=== PATIENT | male | born 1940 | race Caucasian/White ===

== ENCOUNTER 2017-04-16 08:00 | Inpatient (IN) | payer MEDICARE, BC ==
[~2017-04-16] VITALS: Ht 170.2 cm; Wt 71.2 kg
--- NOTE | ~2017-04-16 | HP ---
PATIENT'S NAME: PAULETTE [facility] AGE: 76 Y [address] ROOM: [address] [place], [place] [address] [facility] ADMIT DATE: 04/16/2017 History & Physical DISCHARGE DATE: FAMILY PHYSICIAN: Jarocho Patrick PA-C ATTENDING PHYSICIAN: Immanuel Villagomez DATE OF SERVICE: DIAGNOSIS: Acute ST-elevation myocardial infarction. HISTORY OF PRESENT ILLNESS: The patient is a 76-year-old man, who has known coronary artery disease. He underwent a quadruple coronary bypass in the year 1999. He has been followed by [facility], but apparently recently switched to the [facility]. He lives in [place]. He had coronary graft angiography in 2012 that did not require any intervention. He had another catheterization in 2014, and he had at that point balloon angioplasty of a calcific mid right coronary artery. 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 According to the transfer documents, his medications include metoprolol 25 mg half a tablet at bedtime, omeprazole 20 daily, amlodipine 2.5 mg half a tablet daily, Pravastatin 80 mg daily, Ranexa 1000 mg twice a day, aspirin 81 mg daily. He presented to the local emergency room reporting that he had onset of chest pain the previous night and continued in the morning. Evaluation there showed ST elevation in the inferior leads with reciprocal changes in the lateral leads as well as V1 and V2. The emergency room physician contacted me. He sent me the electrocardiogram, and we treated the patient with intravenous heparin bolus and usual 4 baby aspirins and Lipitor 80. He was also given a dose of metoprolol. Subsequently, his chest pain improved and actually the STs returned to baseline. Initially, plan was to fly the patient to [place], but the weather did not permit, so he was transported by ground. PAST MEDICAL HISTORY: Overall, he is good. The patient does not have any other serious medical problems. REVIEW OF SYSTEMS: Negative. FAMILY HISTORY: His father, brother, and sister all from cardiovascular disease. SOCIAL HISTORY: The patient is . 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 ROOM: [address] [place], [place] [address] [facility] ADMIT DATE: 04/16/2017 History & Physical DISCHARGE DATE: FAMILY PHYSICIAN: Jarocho Patrick PA-C ATTENDING PHYSICIAN: Immanuel Villagomez. Never smoked. Does not use alcohol. No illegal drug history. PAST SURGICAL HISTORY: No other surgical history except CABG. PHYSICAL EXAMINATION: VITAL SIGNS: He is a lean elderly man, who is alert and oriented. Reports 2/10 chest pain. He is 5 feet 7 inches, weight 71.2 kg. Blood pressure is 141/66, heart rate 76. He is afebrile. GENERAL: He is alert and oriented. He is on a gurney. HEENT: Head: Normocephalic, atraumatic. No xanthelasmas. NECK: Supple. No carotid bruits. No jugular venous distention. HEART: Regular first and second heart sounds. LUNGS: Clear. ABDOMEN: Flat, soft and nontender. LOWER EXTREMITIES: No peripheral edema. LABORATORY AND DIAGNOSTIC DATA: His electrocardiogram as described. His troponin in [place] was 0.018 with upper normal 0.056. CK-MB was negative. Creatinine 1.3, estimated GFR 55, potassium 3.3, glucose 169, hemoglobin 13.5. PLAN: We will proceed with emergent catheterization and percutaneous intervention anatomy. Risks, benefits, and alternatives were explained, and the patient is willing to proceed. Thank you for allowing me to participate in the care of your patient. IMMANUEL VILLAGOMEZ MD PE/baljinder /[id number] D: T: HISTORY & PHYSICAL
--- NOTE | ~2017-04-16 | DS ---
PATIENT'S NAME: ELISA CALDWELL [facility] AGE: 76 Y [address] ROOM: [address] [place], [place] [address] LOCATION: [facility] ADMIT DATE: 04/16/2017 Discharge Summary DISCHARGE DATE: 04/21/2017 FAMILY PHYSICIAN: Jarocho Patrick PA-C ATTENDING PHYSICIAN: Immanuel Cuellar DIAGNOSES: 1. ST elevation myocardial infarction with culprit in the saphenous vein graft to obtuse marginal and [place] right coronary artery. 2. Drug-eluting stents to both vessels. 3. Delirium, which cleared. 4. Orthostatic hypotension, transient. 5. Ischemic cardiomyopathy with ejection fraction of 50% by echo. HOSPITAL COURSE: The patient was transferred from outside hospital where he had presented with chest pain and inferior wall ST elevations. Actually, his electrocardiogram had normalized by the time he reached [facility]. He was taken directly to the catheterization laboratory. He had previous history of quadruple bypass in the year 1999. In the original catheterization, the patient was found to have subtotal stenosis of the saphenous vein graft to the obtuse marginal 1. He had patent free NEAL graft to obtuse marginal 2. He had a severely diseased calcific right coronary artery, which historically could not be stented in the year 2014. On day #1, he received 2 drug-eluting stents to the saphenous vein graft. Then, the next day, he was brought back to the catheterization laboratory and we were able to deploy 2 drug-eluting stents to the main RCA vessel and a third in the large posterolateral branch. The patient did well from a cardiac standpoint, but he did become confused and for a couple days had some visual hallucinations, which by the time of discharge have cleared. We did obtain a CT of the head that showed no hemorrhage or findings of acute ischemic stroke. He was also evaluated by Dr. Quinonez, who did not think that the patient needed inpatient rehab. Because of transient orthostatic hypotension, his RAGHAVENDRA inhibitor was discontinued and his beta-ishan was decreased. MEDICATIONS ON DISCHARGE: 1. Aspirin 81 mg once a day. 2. Ticagrelor 90 mg twice a day. 3. Carvedilol 6.25 mg twice a day. 4. Atorvastatin 80 mg daily. 5. Eplerenone 25 mg daily. 6. Omeprazole 10 mg daily. FOLLOWUP: Follow up with rudolphelf in 2 weeks, with Dr. Quinonez in 1 week, and his family physician in 1 week. PATIENT'S NAME: ELISA CALDWELL [facility] AGE: 76 Y [address] ROOM: [address] [place], [place] [address] [facility] AD[facility] DATE: 04/16/2017 Discharge Summary DISCHARGE DATE: 04/21/2017 FAMILY PHYSICIAN: Jarocho Patrick PA-C ATTENDING PHYSICIAN: Immanuel Cuellar Thank you for allowing me to participate in the care of your patient. IMMANUEL CUELLAR MD PE/baljinedr /[id number] d: 04/21/17 2144 t: 04/24/17 1119, DISCHARGE SUMMARY
--- NOTE | ~2017-04-16 | CATH ---
Cardiac Diagnostic + PCI Report Demographics Patient Name PAULETTE PÉREZ Gender Male Date of 1940 Age 76 year(s) Patient Number [id number] Date of Study 04/16/2017 Visit Number [id number] Room Number G[address] [place] [id number] Ht 175 cm Wt 72.9 kg Number Referring Efstrati Primary Physician Physician Arielle Mcbride MD Performing Efstratiou Secondary Physician Physician Arielle Mcbride MD Diagnostic Efstratiou Assisting Physician Physician Arielle Mcbride MD Interventional Efstratiou Physician Regulatory Affairs Director Physician Arielle Mcbride MD Findings and Conclusions Diagnostic Findings and Conclusion Severe stenosis in SVG to OM2 (2 lesions). Severe stenosis in resighini RCA and PLB. Patent PRESLEY to LAD and free NEAL to OM1. Diagnostic Recommendations PCI of SVG to OM Interventional Findings and Conclusion Successful drug eluting stent x 2 to SVG to OM2. Interventional Recommendations Dual anti-platelet therapy indefinitely. Staged PCI to RCA. Procedure Description The patient was brought to the diagnostic cardiac catheterization-EP laboratory in the fasting, non-sedated state. Informed consent was obtained in the written and verbal form after the risks and benefits were explained. The patient had no further questions and agreed to proceed. The planned puncture-incision site(s) were shaved and prepped with ChloraPrep and draped in the usual sterile manner. Conscious sedation, supplemental oxygen, and pain control medications were delivered by a registered nurse under physician guidance. Surface ECG rhythm, blood pressure measurement, and pulse oximetry were monitored throughout the procedure. Arterial access. The access site was infiltrated with lidocaine. The vessel was entered with the Seldinger technique. A sheath was advanced into the vessel and used for catheter placement. Selective left coronary angiography. A catheter was advanced into the left coronary vessel ostium under Fluoroscopic guidance. Contrast was injected by hand. Images were obtained in multiple projections. Selective right coronary angiography. A catheter was advanced into the right coronary vessel ostium under fluoroscopic guidance. Contrast was injected by hand. Images were obtained in multiple projections. Selective PRESLEY graft angiography. A catheter was advanced into the left internal mammary graft ostium under fluoroscopic guidance. Contrast was injected by hand. Images were obtained in multiple projections. Selective SVG angiography. A catheter was advanced into the graft proximal anastomosis under fluoroscopic guidance. Contrast was injected by hand. Images were obtained in multiple projections. Selective Free NEAL graft angiography. A catheter was advanced into the free right internal mammary graft proximal anastomosis under fluoroscopic guidance. Contrast was injected by hand. Images were obtained in multiple projections. Left heart catheterization. A catheter was advanced across the aortic valve to the left ventricle under fluoroscopic guidance. Resting hemodynamics were obtained. Stent Placement: A guiding catheter was used to intubate the vessel. A 0.14 wire was used to cross the lesion. A Drug Eluting Stent was placed. Post placement angiograms were performed. Arterial artery hemostasis. Hemostasis was achieved. The patient was transferred to a regular nursing floor via cart accompanied by a nurse. The patient left the laboratory in stable condition. Diagnostic Cath Status: Emergency Interventional Cath Status: Emergency Procedure Procedure Type Diagnostic procedure:Angiography:, Coronary Angios w/Grafts, [facility] PCI procedure:Drug Eluting Coronary Stent:, Graft Indications: Acute [place]. The procedure was explained in detail to the patient. Risks, complications and alternative treatments were reviewed. Written consent was obtained. Medications Reviewed with Patient prior to Procedure. Angiographic Findings Dominance: Right Cardiac Arteries and Lesion Findings LMCA: Lesion on LMCA: Ostial.75% stenosis . LAD: Lesion on Prox LAD: 40% stenosis . Lesion on Mid LAD: 90% stenosis . Lesion on 1st Dia% stenosis . LCx: Lesion on Prox CX: 100% stenosis . Lesion on 1st Ob Elen% stenosis . RCA: Lesion on Mid RCA: 80% stenosis . Lesion on Dist RCA: 70% stenosis . Lesion on 1st RPL: 70% stenosis . Graft Lesions Lesion on Aorta Left to 2nd Ob Elen: Proximal body.90% stenosis 20 mm length reduced to 0%. Pre procedure JASMEET III flow was noted. Post Procedure JASMEET III flow was present. The lesion was diagnosed as a high risk lesion.The lesion showed evidence of thrombus presence.Culprit lesion. Treatment results:Interventional treatment was successful. Devices used - Whisper Wire .014 x 190. Number of passes: 1. - Filterwire 190 cm. Number of passes: 1. - Promus Premier 3.0 x 20 Stent. 1 inflation(s) to a max pressure of: 20 opal. - Pronto V3 Aspiration Catheter. Number of passes: 1. Lesion on Aorta Left to 2nd Ob Elen: Distal body.90% stenosis 24 mm length reduced to 0%. Pre procedure JASMEET III flow was noted. Post Procedure JASMEET III flow was present. The lesion was diagnosed as a high risk lesion.The lesion showed evidence of thrombus presence.Culprit lesion. Treatment results:Interventional treatment was successful. Devices used - Promus Premier 3.0 x 24 Stent. 1 inflation(s) to a max pressure of: 14 opal. Cardiac Grafts - There is a Free NEAL graft that originates at the Aorta Left and attaches to the 1st Ob Elen (Patent). - There is a Vein graft that originates at the Aorta Left and attaches to the 2nd Ob Elen. - There is a PRESLEY graft that originates at the PRESLEY and attaches to the Mid LAD. Coronary Tree Procedure Data Procedure Date Date: 04/16/2017Start: 09:51 AMEnd: 11:09 AM Entry Locations - Retrograde Percutaneous access was performed through the Right Femoral artery (Primary location). A 6 Fr sheath was inserted. Hemostasis was successfully obtained using Angio-Seal STS PLUS ([place]). Closure Comments: Deployed by Dr. Villagomez. Procedure Medications Order and Administration + + + + + !Time !Medication !Dosage !Route ! + + + + + !04/16/2017 09:52 !Fentanyl !25 mcg !I.V. ! !AM ! ! ! ! + + + + + !04/16/2017 09:58 !Heparin (ACC_3) !6000 units !I.V. ! !AM ! ! ! ! + + + + + !04/16/2017 10:16 !Heparin (ACC_3) !2000 units !I.V. ! !AM ! ! ! ! + + + + + !04/16/2017 10:23 !Fentanyl !25 mcg !I.V. ! !AM ! ! ! ! + + + + + !04/16/2017 10:30 !Heparin (ACC_3) !2000 units !I.V. ! !AM ! ! ! ! + + + + + !04/16/2017 10:31 !Fentanyl !25 mcg !I.V. ! !AM ! ! ! ! + + + + + !04/16/2017 10:25 !Aggrastat (Tirofiban) !1875 mcg !I.C. ! !AM ! ! ! ! + + + + + !04/16/2017 10:33 !Fentanyl !25 mcg !I.V. ! !AM ! ! ! ! + + + + + !04/16/2017 10:38 !Aggrastat (Tirofiban) !0.15 mcg/kg/min!I.V. drip ! !AM ! ! ! ! + + + + + !04/16/2017 10:40 !Nipride !200 mcg !I.C. ! !AM ! ! ! ! + + + + + !04/16/2017 10:41 !Nipride !200 mcg !I.C. ! !AM ! ! ! ! + + + + + !04/16/2017 10:42 !0.9% NaCl !200 ml !I.V. bolus ! !AM ! ! ! ! + + + + + !04/16/2017 10:46 !Fentanyl !50 mcg !I.V. ! !AM ! ! ! ! + + + + + !04/16/2017 10:56 !Brilinta (Ticagrelor) !180 mg !P.O. ! !AM !(ACC_20) ! ! ! + + + + + Devices Used - A6 Fr. BS JL 4 Diag. Catheterwas used for:Left coronary angiography. - A6 Fr. BS JR 4 Diag. Catheterwas used for:Right coronary angiography. - A6 Fr. BS IMT Diag. Catheterwas used for:PRESLEY. - A6 Fr. LCB Guide Catheterwas used for:SVG Intervention. Contrast Material - Isovue [id number] ml Fluoroscopy Time: Diagnostic: 18:54 minutes. Total: 18:54 minutes. Fluoroscopy Dose: Diagnostic: 1823 mGy. Total: 1823 mGy. Estimated Blood Loss: 50 ml. Additional [facility] PCI Information PCI Indication:Immediate PCI for STEMI. Medical History Allergies - No known allergies. Risk Factors The patient risk factors include:prior PCI on 08/25/2015; prior CABG on 09/03/2000;hypercholesterolemia, hypertension, family history of premature CAD, last creatinine: 1.3 mg/dl, creatinine clearance: 51.4 ml/min and dyslipidemia. Admission Data Admission Date: 04/16/2017 Admission Time: 09:32 AM Admit Source: Transfer [facility] facility Insurance Payors: Medicare. Admission Medications + +------+------+ + + + + !Medication !Dosage!Times !Last !Last !Administered !Comments ! ! ! !Per !Delivery !Delivery ! ! ! ! ! !Day !Date !Time ! ! ! + +------+------+ + + + + !Beta [place]! ! ! ! !Yes ! ! !(any) ! ! ! ! ! ! ! + +------+------+ + + + + !RAGHAVENDRA ! ! ! ! !Yes ! ! !Inhibitor ! ! ! ! ! ! ! !(any) ! ! ! ! ! ! ! + +------+------+ + + + + !Aspirin ! ! ! ! !Yes ! ! !(any) ! ! ! ! ! ! ! + +------+------+ + + + + Clinical Evaluation Leading to Procedure - The patient's CAD presentation was assessed as: STEMI. - The patient's anginal syndrome during the past two weeks was assessed as: Class IV according to the [place] Cardiovascular Society Classification System (CCS). Anti-anginal medications were prescribed during the past two weeks. The medications are: Beta Blockers and Ranolazine. Snapshots Hemodynamics Condition: Rest O2 Consumption: Estimated: 223.40Heart Rate: 80 bpm Pressures (mmHg) +-----+ + !Site !Pressure ! +-----+ + !AO !124/57 (85) ! +-----+ + !LV !122/0 ,15 ! +-----+ + !LV !122/0 ,15 ! +-----+ + !AO !130/55 (85) ! +-----+ + !LV !119/1 ,14 ! +-----+ + !AO !122/59 (85) ! +-----+ + Valve Gradients and Areas + +---------+---------+---------+ +---------+ + !Valve !Peak !Mean !Area !Index !Flow !Source ! + +---------+---------+---------+ +---------+ + !Aortic !0 !0 ! ! ! ! ! + +---------+---------+---------+ +---------+ + !Aortic !0 !0 ! ! ! ! ! + +---------+---------+---------+ +---------+ + Shunts Oxygen Values O2 Capacity 183.6 O2 Consumption 223.4 Signatures dtt: Efrain Villagomez dtd: 04/16/17 0951 Physician Self Edit
--- NOTE | ~2017-04-16 | CATH ---
Cardiac Diagnostic + PCI Report Demographics Patient Name PAULETTE PÉREZ Gender Male Date of 1940 Age 76 year(s) Patient Number [id number] Date of Study 04/17/2017 Visit Number [id number] Room Number G6324 [place] [id number] Ht 175 cm Wt 72.9 kg Number Referring Darnell Avendaño I Primary Physician Physician DENNIS Performing Efstratiou Secondary Physician Physician Arielle Mcbride MD Diagnostic Efstratiou Assisting Physician Physician Arielle Mcbride MD Interventional Efstratiou Physician Devulcanizer Tender Physician Arielle Mcbride MD Findings and Conclusions Diagnostic Findings and Conclusion 95% severe calcific stenosis of mid RCA. 75% stenosis of large PLB. Patent recent stents to SVG to OM2 Patent SVG to OM3 which was not imaged yesterday Diagnostic Recommendations PCI to both lesions. Interventional Findings and Conclusion Successful deployment of 3 SWETA. Interventional Recommendations Continue ASA and Brilinta. Procedure Description The patient was brought to the diagnostic cardiac catheterization-EP laboratory in the fasting, non-sedated state. Informed consent was obtained in the written and verbal form after the risks and benefits were explained. The patient had no further questions and agreed to proceed. The planned puncture-incision site(s) were shaved and prepped with ChloraPrep and draped in the usual sterile manner. Conscious sedation, supplemental oxygen, and pain control medications were delivered by a registered nurse under physician guidance. Surface ECG rhythm, blood pressure measurement, and pulse oximetry were monitored throughout the procedure. Arterial access. The access site was infiltrated with lidocaine. The vessel was entered with the Seldinger technique. A sheath was advanced into the vessel and used for catheter placement. Selective left coronary angiography. A catheter was advanced into the left coronary vessel ostium under Fluoroscopic guidance. Contrast was injected by hand. Images were obtained in multiple projections. Selective right coronary angiography. A catheter was advanced into the right coronary vessel ostium under fluoroscopic guidance. Contrast was injected by hand. Images were obtained in multiple projections. Selective SVG angiography. A catheter was advanced into the graft proximal anastomosis under fluoroscopic guidance. Contrast was injected by hand. Images were obtained in multiple projections. Selective SVG angiography. A catheter was advanced into the graft proximal anastomosis under fluoroscopic guidance. Contrast was injected by hand. Images were obtained in multiple projections. Angioplasty and Stent Placement: A guiding catheter was used to intubate the vessel. A 0.14 wire was then used to cross the lesion. A balloon catheter was placed across the lesion and inflated. The balloon catheter was then removed. A Drug Eluting Stent was placed and inflated. Post placement angiograms were performed. Arterial artery hemostasis was achieved. The patient was transferred to a regular nursing floor via cart accompanied by a nurse. The patient left the laboratory in stable condition. Diagnostic Cath Status: Urgent Interventional Cath Status: Urgent Procedure Procedure Type Diagnostic procedure:Angiography:, Coronary Angios w/Grafts PCI procedure:Drug Eluting Coronary Stent:, RCA, PL Indications: Recent KS. The procedure was explained in detail to the patient. Risks, complications and alternative treatments were reviewed. Written consent was obtained. Medications Reviewed with Patient prior to Procedure. Angiographic Findings Dominance: Right Cardiac Arteries and Lesion Findings LCx: Lesion on 3rd Ob Elen% stenosis . RCA: Lesion on Mid RCA: Mid subsection.95% stenosis 32 mm length reduced to 0%. Pre procedure JASMEET II flow was noted. Post Procedure JASMEET III flow was present. The guidewire cross was successful.The lesion was diagnosed as a moderate risk lesion.Culprit lesion. Treatment results:Interventional treatment was successful. Devices used - Whisper Extra Support Wire .014 x 190. Number of passes: 1. - Emerge Push Balloon 1.5 x 8. 5 inflation(s) to a max pressure of: 22 opal. - Emerge Balloon 2.0 x 12. 1 inflation(s) to a max pressure of: 20 opal. - Emerge Balloon 2.5 x 12. 3 inflation(s) to a max pressure of: 16 opal. - NC Emerge Balloon 3.0 x 15. 4 inflation(s) to a max pressure of: 20 opal. - Promus Premier 3.0 x 32 Stent. 2 inflation(s) to a max pressure of: 22 opal. - NC Emerge Balloon 3.5 x 8. 3 inflation(s) to a max pressure of: 18 opal. Lesion on 1st RPL: Proximal subsection.75% stenosis 16 mm length reduced to 0%. Pre procedure JASMEET III flow was noted. Post Procedure JASMEET III flow was present. The guidewire cross was successful.The lesion was diagnosed as a moderate risk lesion. Treatment results:Interventional treatment was successful. Devices used - Emerge Balloon 2.0 x 12. 1 inflation(s) to a max pressure of: 16 opal. - Emerge Balloon 2.5 x 12. 1 inflation(s) to a max pressure of: 16 opal. - Promus Premier 3.0 x 16 Stent. 2 inflation(s) to a max pressure of: 20 opal. - NC Emerge Balloon 3.5 x 8. 2 inflation(s) to a max pressure of: 18 opal. Lesion on Mid RCA: Proximal subsection.95% stenosis 16 mm length reduced to 0%. Pre procedure JASMEET II flow was noted. Post Procedure JASMEET III flow was present. The guidewire cross was successful.The lesion was diagnosed as a high risk lesion.Culprit lesion. Treatment results:Interventional treatment was successful. Devices used - NC Emerge Balloon 3.0 x 15. 1 inflation(s) to a max pressure of: 16 opal. - Promus Premier 3.5 x 16 Stent. 1 inflation(s) to a max pressure of: 18 opal. - NC Emerge Balloon 3.5 x 12. 1 inflation(s) to a max pressure of: 18 opal. Cardiac Grafts - There is a Free NEAL graft that originates at the Aorta Left and attaches to the 1st Ob Elen. - There is a Vein graft that originates at the Aorta Left and attaches to the 2nd Ob Elen (2 patent stents from yesterday.).There is a previous stent on Aorta Left to 2nd Ob Elen Proximal Body. There is a previous stent on Aorta Left to 2nd Ob Elen Distal Body. - There is a PRESLEY graft that originates at the PRESLEY and attaches to the Mid LAD. Coronary Tree Procedure Data Procedure Date Date: 04/17/2017Start: 11:19 AMEnd: 12:51 PM Entry Locations - Retrograde Percutaneous access was performed through the Left Femoral artery (Primary location). A 6 Fr sheath was inserted. Hemostasis was successfully obtained using Angio-Seal STS PLUS ([place]). Closure Comments: Performed by Dr. Villagomez.. Procedure Medications Order and Administration + + + + + !Time !Medication !Dosage !Route ! + + + + + !04/17/2017 11:13 AM !Fentanyl !25 mcg !I.V. ! + + + + + !04/17/2017 11:17 AM !Versed !1 mg !I.V. ! + + + + + !04/17/2017 11:21 AM !Heparin (ACC_3) !8000 units !I.V. bolus ! + + + + + !04/17/2017 12:01 PM !Fentanyl !50 mcg !I.V. ! + + + + + !04/17/2017 12:08 PM !Heparin (ACC_3) !2000 units !I.V. bolus ! + + + + + !04/17/2017 12:08 PM !Versed !1 mg !I.V. ! + + + + + !04/17/2017 12:17 PM !0.9% NaCl !300 ml !I.V. bolus ! + + + + + !04/17/2017 12:33 PM !0.9% NaCl !100 ml !I.V. bolus ! + + + + + Devices Used - A6 Fr. BS JR 4 Diag. Catheterwas used for:Left coronary angiography. - A6 Fr. BS LCB Diag. Catheterwas used for:Left coronary angiography. - A6 Fr. AL1 Guide Catheterwas used for:Right coronary angiography. - A6 Fr. Guidlinerwas used for:RCA Intervention. Contrast Material - Isovue [id number] ml Fluoroscopy Time: Diagnostic: 38:36 minutes. Total: 38:36 minutes. Fluoroscopy Dose: Diagnostic: 2113 mGy. Total: 2113 mGy. Estimated Blood Loss: 30 ml. Additional [facility] PCI Information PCI Indication:Staged PCI. Medical History Performed Procedures and Imaging Results - No [facility] stress or imaging studies were performed. Allergies - No known allergies. Risk Factors The patient risk factors include:prior PCI on 04/16/2017; prior CABG on 09/03/2000;hypercholesterolemia, hypertension, family history of premature CAD, last creatinine: 1.3 mg/dl, creatinine clearance: 51.4 ml/min and dyslipidemia. Admission Data Admission Date: 04/16/2017 Admission Time: 09:32 AM Admit Source: [facility] Insurance Payors: Medicare. Admission Medications + +------+------+ + + + + !Medication !Dosage!Times !Last !Last !Administered !Comments ! ! ! !Per !Delivery !Delivery ! ! ! ! ! !Day !Date !Time ! ! ! + +------+------+ + + + + !Beta [place]! ! ! ! !Yes ! ! !(any) ! ! ! ! ! ! ! + +------+------+ + + + + !RAHGAVENDRA ! ! ! ! !Yes ! ! !Inhibitor ! ! ! ! ! ! ! !(any) ! ! ! ! ! ! ! + +------+------+ + + + + !Aspirin ! ! ! ! !Yes ! ! !(any) ! ! ! ! ! ! ! + +------+------+ + + + + Clinical Evaluation Leading to Procedure - The patient's CAD presentation was assessed as: STEMI. 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 Anti-anginal medications were prescribed during the past two weeks. The medications are: Beta Blockers and Ranolazine. Snapshots Hemodynamics Condition: Rest O2 Consumption: Estimated: 217.21Heart Rate: 71 bpm Pressures (mmHg) +-----+ + !Site !Pressure ! +-----+ + !AO !115/54 (79) ! +-----+ + !AO !113/57 (81) ! +-----+ + !TAMIKO !161/97 (112) ! +-----+ + Shunts Oxygen Values O2 Capacity 183.6 O2 Consumption 217.21 Signatures dtt: Grey Villagomezin dtd: 04/17/17 1119 Physician Self Edit
--- NOTE | ~2017-04-16 | ECHO ---
Transthoracic Echocardiography Report (TTE) Demographics Patient Name ELISA CALDWELL Date of Study 04/17/2017 Patient Number [id number] Visit Number [id number] Date of 1940 Room Number G6324 Gender Male Number Age 76 year(s) Referring Hernando Guzmán Assistant Research Scientist Tuyet Murillo RDCS, Physician Rae PRIETO RVT Physician Interpreting [facility] Jewelry Polisher Physician Arielle Mcbride MD Supervising Ordering Darnell Singh MD/MLP Physician PAC Nurse Stress Soap Drier Tender Conclusions Summary The estimated left ventricular ejection fraction is 50%. The left ventricle is mildly dilated . Mild concentric left ventricular hypertrophy. Diastolic assessment reveals Grade II pseudonormal diastolic function. . Mild mitral regurgitation by color Doppler. The aortic valve is moderately sclerotic. There is mild to moderate aortic regurgitation. Mild tricuspid regurgitation by color Doppler. Upper normal estimated PA pressure. The ascending aorta appears mildly dilated. The maximum diameter measures 3.80 cm. Procedure Type of Study TTE procedure:2D Echocardiogram. Procedure Date Date: 04/17/2017 Start: 09:40 AM Study Location: Inpatient Portable Technical Quality: Good visualization Indications:Post PTCA. Appropriate Use Criteria: 9 Patient Status: Routine Rhythm: Within normal limits HR: 63 bpm BP: 144/64 mmHg Allergies - No known allergies. M-Mode/2D Measurements LV Diastolic Dimension: 5.45 cm LV Systolic Dimension: 3.7 cm LV Septum Diastolic: 1.25 cm LV PW Diastolic: 1.22 cm AO Root Dimension: 2.7 cm Cardiac Output: 4.34 l/min AV Cusp Separation: 2.3 cm RV Diastolic Dimension: 2.49 cm LA volume: 74 ml IVC Inspiration: 0.6 cm LVOT: 2.3 cm RV Base: 2.84 cm LVOT VTI: 16.6 cm RV Mid: 2.83 cm LV Stroke volume: 68.93 ml TAPSE: 1.79 cm TDI-S': 11.2 cm/s Doppler Measurements AV Peak Velocity: 1.2 m/s MV Peak E-Wave: 0.72 m/s AV Peak Gradient: 5.76 mmHg MV Peak A-Wave: 0.54 m/s AV Mean Gradient: 3 mmHg MV E/A Ratio: 1.34 LVOT Peak Velocity: 0.84 m/s MV P1/2t: 99 msec AV P1/2t: 673 msec TR Gradient:30.69 mmHg PV Peak Velocity: 1.03 m/s Estimated RAP:3 mmHg PV Peak Gradient: 4.24 mmHg Estimated RVSP: 34 mmHg Estimated PASP: 33.69 mmHg E' Septal Velocity: 0.08 m/s A' Septal Velocity: 0.1 m/s E' Lateral Velocity: 0.08 m/s A' Lateral Velocity: 0.11 m/s MV E/E' Ratio: 9.4 Findings Left Ventricle The estimated left ventricular ejection fraction is 50%. The left ventricle is mildly dilated . Mild concentric left ventricular hypertrophy. Diastolic assessment reveals Grade II pseudonormal diastolic function. . Right Ventricle Normal right ventricle structure and function. Left Atrium The left atrium is mildly dilated by LA volume index measurement. Right Atrium The right atrium is mild to moderately dilated. Mitral Valve Mild mitral regurgitation by color Doppler. Aortic Valve The aortic valve is moderately sclerotic. There is mild to moderate aortic regurgitation. Tricuspid Valve Mild tricuspid regurgitation by color Doppler. Upper normal estimated PA pressure. Pulmonic Valve Mild pulmonic valve regurgitation by color Doppler. Pericardial Effusion No evidence of pericardial effusion. Miscellaneous The ascending aorta appears mildly dilated. The maximum diameter measures 3.80 cm. Pleural Effusion No evidence of pleural effusion. Contractility Score LV regional wall motion:(0-Non visualized 1-Normal 2-Hypokinesis 3-Akinesis 4-Dyskinesis 5-Aneurysm) Signature dtt: Efrain Villagomez dtd: 04/17/17 0940 Physician Self Edit
--- NOTE | ~2017-04-16 | CON ---
PATIENT'S NAME: ELISA CALDWELL [facility] AGE: 76 Y [address] ROOM: [place] [address] LOCATION: GPCU ADMIT DATE: 04/16/2017 Consultation DISCHARGE DATE: FAMILY PHYSICIAN: Jarocho Patrick PA-C ATTENDING PHYSICIAN: Efrain Villagomez REFERRING PHYSICIAN: ELISABETH POWELL MD A consult for Dr. Villagomez. HISTORY OF PRESENT ILLNESS: This pleasant 76-year-old gentleman is known to have coronary artery disease. He did undergo in 2000, per history, CABG x4 vessels. Did also give history of coronary angioplasty in 2012 and did not require any intervention. However, he did have a catheterization done in 2014 and did well with balloon angioplasty of right cardiac artery. He presented to the local clinic with chest pain overnight, and EKG did show ST-segment elevation in the inferior leads. He was given heparin and aspirin, and reportedly, his pain improved and ST-segment reversed. He is now referred for rehab evaluation. Alert, oriented. No pain. No shortness of breath. PHYSICAL EXAMINATION: VITAL SIGNS: Blood pressure 117/52, temperature 98.2, pulse 59, respiration rate 12. He is 5 feet 7 inches and weighs 71.2 kg. NEUROLOGIC: He can comprehend and express without difficulty. Cranial nerves 2 through 12 are within normal limits. Neurologically, he is intact and within normal limits. He can speak. Speech is clear and not wet. He can swallow without difficulty. Denies any double vision. No headache at the present time. No shortness of breath. Denies any chest discomfort and/or pain. Denies any palpitation. Deep tendon reflexes are present and equal throughout. He can control his bowel and bladder well. He is, at the present time, able to ambulate about 200 to 250, up to 300 feet with supervision. MEDICATIONS: He is on the following medications: 1. Coreg. 2. Inspra. 3. Protonix. 4. NaCl. 5. Aspirin. PATIENT'S NAME: ELISA CALDWELL [facility] AGE: 76 Y [address] ROOM: [address] [address] LOCATION: GPCU ADMIT DATE: 04/16/2017 Consultation DISCHARGE DATE: FAMILY PHYSICIAN: Jarocho Patrick PA-C ATTENDING PHYSICIAN: Efrain Villagomez 6. Brilinta. 7. Lipitor. 8. Benadryl. 9. Zofran. 10. Tylenol. 11. Colace. 12. Morphine sulfate. 13. Nitroglycerin. 14. Zestril. ASSESSMENT AND PLAN: I feel this gentleman has done very well. He lives alone, but he has good support, and I would advise him not to drive until he is re-evaluated. He can continue to follow with his family physician. I would like to see him after discharge in about one week in my office. All the above was explained to him. He verbalized understanding and agreement with plan of care. MD XENA JORDAN/modl /[id number] d: 04/21/17 1443 t: 04/21/17 1655, CONSULTATION REPORT
[2017-04-17 06:01] LABS: ALBUMIN 2.7 gm/dL (3.5-5.0); ANION GAP 9.6 (10.0-19.0); CALCIUM 7.9 mg/dL (8.5-10.5); CREATININE 1.1 mg/dL (0.6-1.3); POTASSIUM 3.6 mMol/L (3.7-5.1); TOTAL BILIRUBIN 0.7 mg/dL (0.0-1.5); TOTAL PROTEIN 5.8 g/dL (6.0-8.4)
[2017-04-17] MEDS ORDERED: PRAVACHOL80 MG PO (09:02)
[2017-04-17] MEDS ORDERED: NORVASC2.5 MG PO (09:03)
[2017-04-17] MEDS ORDERED: RANEXA1000 MG PO (09:04)
[2017-04-17] MEDS ORDERED: PRILOSEC10 MG PO (09:06)
[2017-04-17] MEDS ORDERED: ASPIRIN LO-DOSE81 MG PO (09:07)
[2017-04-18 07:44] LABS: ALBUMIN 3.1 gm/dL (3.5-5.0); ANION GAP 11.5 (10.0-19.0); CALCIUM 8.3 mg/dL (8.5-10.5); CREATININE 1.1 mg/dL (0.6-1.3); POTASSIUM 3.5 mMol/L (3.7-5.1); TOTAL BILIRUBIN 0.6 mg/dL (0.0-1.5); TOTAL PROTEIN 6.4 g/dL (6.0-8.4)
[2017-04-19 04:28] LABS: ANION GAP 11.7 (10.0-19.0); CALCIUM 8.6 mg/dL (8.5-10.5); CREATININE 1.1 mg/dL (0.6-1.3); POTASSIUM 3.7 mMol/L (3.7-5.1)
[2017-04-20 17:45] LABS: COLOR URINE YELLOW (YELLOW); LEUKOCYTES URINE NEGATIVE /UL (NEGATIVE); NITRITE URINE NEGATIVE (NEGATIVE); PROTEIN URINE NEGATIVE (NEGATIVE); TURBIDITY URINE CLEAR (CLEAR)
[2017-04-20 17:46] LABS: BILIRUBIN URINE NEGATIVE (NEGATIVE); BLOOD URINE NEGATIVE /UL (NEGATIVE); GLUCOSE URINE NEGATIVE (NEGATIVE); KETONE URINE NEGATIVE (NEGATIVE); UROBILINOGEN URINE 1 mg/dL (NORMAL)
[2017-04-21] MEDS ORDERED: LIPITOR80 MG PO (14:30)
[2017-04-21] MEDS ORDERED: COREG6.25 MG PO (14:31)
[2017-04-21] MEDS ORDERED: INSPRA25 MG PO (14:32)
[2017-04-21] MEDS ORDERED: BRILINTA90 MG PO (14:34)
== END 2017-04-21 15:00 | disposition disaster alternative care site (69) | DRG 247 ==
LOC: GPCU 09:32
PROVIDERS: ADMIT Internal Medicine Cardiovascular Disease
PROC: B2131ZZ Fluoroscopy of Multiple Coronary Artery Bypass Grafts using Low Osmolar Contrast (ICD-10-PCS; principal; 2017-04-16)
PROC: B2181ZZ Fluoroscopy of Left Internal Mammary Bypass Graft using Low Osmolar Contrast (ICD-10-PCS; principal; 2017-04-16)
PROC: B2111ZZ Fluoroscopy of Multiple Coronary Arteries using Low Osmolar Contrast (ICD-10-PCS; principal; 2017-04-16)
PROC: 4A023N7 Measurement of Cardiac Sampling and Pressure, Left Heart, Percutaneous Approach (ICD-10-PCS; principal; 2017-04-16)
PROC: 027035Z Dilation of Coronary Artery, One Artery with Two Drug-eluting Intraluminal Devices, Percutaneous Approach (ICD-10-PCS; principal; 2017-04-16)
PROC: 027034Z Dilation of Coronary Artery, One Artery with Drug-eluting Intraluminal Device, Percutaneous Approach (ICD-10-PCS; 2017-04-17)
PROC: B2131ZZ Fluoroscopy of Multiple Coronary Artery Bypass Grafts using Low Osmolar Contrast (ICD-10-PCS; 2017-04-17)
PROC: B246ZZZ Ultrasonography of Right and Left Heart (ICD-10-PCS; 2017-04-17)
PROC: B2111ZZ Fluoroscopy of Multiple Coronary Arteries using Low Osmolar Contrast (ICD-10-PCS; 2017-04-17)
DX: I21.11 ST elevation (STEMI) myocardial infarction involving right coronary artery (principal); I95.1 Orthostatic hypotension; Z95.1 Presence of aortocoronary bypass graft; R41.0 Disorientation, unspecified; Z95.5 Presence of coronary angioplasty implant and graft; I25.5 Ischemic cardiomyopathy; I25.110 Atherosclerotic heart disease of native coronary artery with unstable angina pectoris
CPT/HCPCS: C1725; C1757; C1760; C1769; C1874; C1884; C1887; C9600; C9604; C9606; J1644; J2250; J2370; J3010; J3246; J7030; J7040; J7060

== ENCOUNTER → 2017-04-16 | Outpatient (CLI) | payer MEDICARE, BC ==
[~2017-04-16] MED LIST: ASPIRIN LO-DOSE81 MG PO; BRILINTA90 MG PO; COREG6.25 MG PO; INSPRA25 MG PO; LIPITOR80 MG PO; NORVASC2.5 MG PO; PRAVACHOL80 MG PO; PRILOSEC10 MG PO; RANEXA1000 MG PO
== END | disposition disaster alternative care site (69) ==
LOC: GAMB 08:44
DX: R07.89 Other chest pain (principal); D64.9 Anemia, unspecified; E78.5 Hyperlipidemia, unspecified; I10 Essential (primary) hypertension; M19.90 Unspecified osteoarthritis, unspecified site; R11.10 Vomiting, unspecified; R19.7 Diarrhea, unspecified; R06.02 Shortness of breath; Z95.1 Presence of aortocoronary bypass graft; Z79.82 Long term (current) use of aspirin; Z79.899 Other long term (current) drug therapy
CPT/HCPCS: A0422; A0425; A0426

== ENCOUNTER → 2017-05-10 | Outpatient (CLI) | payer MEDICARE, BC ==
[2017-05-10 17:09] LABS: ANION GAP 9.9 (10.0-19.0); CALCIUM 8.9 mg/dL (8.5-10.5); CREATININE 1.1 mg/dL (0.6-1.3); POTASSIUM 3.9 mMol/L (3.7-5.1)
== END ==
LOC: LNHI 16:44
PROVIDERS: Internal Medicine Cardiovascular Disease
DX: I25.10 Atherosclerotic heart disease of native coronary artery without angina pectoris (principal); I25.5 Ischemic cardiomyopathy